=== PATIENT | male | born 1960 | race Caucasian/White ===

== ENCOUNTER 2020-11-14 00:57 | Emergency (ER) | payer OTHER, SELFPAY ==
--- NOTE | 2020-11-14 01:20 | ECG_ITS ---
[facility] Test Date: 2020-11-14 Pat Name: Nick Lawler Department: Room: Gender: Male [employer]: : 1960 Requested By: Tressa Sierra Order Number: [id number] Damian MD: Samantha Fong M.D. Measurements Intervals [place] Rate: 74 P: 61 PA: 178 QRS: 6 QRSD: 91 T: 43 QT: 357 QTc: 397 Interpretive Statements SINUS RHYTHM WITH OCCASIONAL SUPRAVENTRICULAR PREMATURE COMPLEXES POSSIBLE RIGHT VENTRICULAR CONDUCTION DELAY [RSR (QR) IN V1/V2] No previous ECG available for comparison Electronically Signed On 11-15-2020 7:06:59 CDT by Samantha Fong M.D. [id number]
[2020-11-14 01:37] VITALS: BP 187/114; PULSE 68; RESP 18; TEMP 36.8; O2SAT 97; BMI 33.3
--- NOTE | 2020-11-14 02:04 | CTR_ITS ---
PROCEDURE INFORMATION: Exam: CT Angiography Head With Contrast, Arteriography Exam date and time: 11/14/2020 2:04 AM Age: 60 years old Clinical indication: Pain; Patient HX: Patient C/O headache with severe dizziness and hypertension. ; Additional info: Rule out posterior fossa and dissection TECHNIQUE: Imaging protocol: Computed tomography angiography of the head with contrast. Exam focused on the arteries. 3D rendering (Not supervised by radiologist): MIP and/or 3D reconstructed images were created by the technologist. Radiation optimization: All CT scans at this facility use at least one of these dose optimization techniques: automated exposure control; mA and/or kV adjustment per patient size (includes targeted exams where dose is matched to clinical indication); or iterative reconstruction. Contrast material: OMNI 350; Contrast volume: 95 ml; Contrast route: INTRAVENOUS (IV); COMPARISON: CT head wo con* [id number] 11/14/2020 3:01 AM RADIATION DOSE METRICS: Total DLP (mGy-cm): 2532.67 FINDINGS: ANTERIOR CIRCULATION: Right internal carotid artery: Calcification of the cavernous internal carotid artery. Intracranial segment is patent with no significant stenosis. No aneurysm. Limited assessment due to adjacent artifact. Right middle cerebral artery: Unremarkable. No occlusion or significant stenosis. No aneurysm. Right anterior cerebral artery: Unremarkable. No occlusion or significant stenosis. No aneurysm. Partial fenestration of distal A1 segment. Left internal carotid artery: Atherosclerotic calcification of cavernous portion of internal carotid artery. Intracranial segment is patent with no significant stenosis. No aneurysm. Limited assessment due to adjacent artifact. Left middle cerebral artery: Unremarkable. No occlusion or significant stenosis. No aneurysm. Left anterior cerebral artery: Unremarkable. No occlusion or significant stenosis. No aneurysm. POSTERIOR CIRCULATION: Right vertebral artery: Atherosclerotic calcification at the level of skull base. No occlusion or significant stenosis. No aneurysm. Left vertebral artery: Atherosclerotic plaque at the level of skull base. No occlusion or significant stenosis. No aneurysm. Basilar artery: Slight ectasia of the proximal basilar artery at the level of the lower lio. Eccentric noncalcified atherosclerotic plaque or thrombus of the basilar artery proximal to the bifurcation of posterior cerebral arteries with a 1.4 cm length segment irregular plaque and moderate to borderline high-grade stenosis involving short segment . Right posterior cerebral artery: Unremarkable. No occlusion or significant stenosis. No aneurysm. Left posterior cerebral artery: Unremarkable. No occlusion or significant stenosis. No aneurysm. Brain: No definite mass, mass effect, or midline shift. Cerebral ventricles: No ventriculomegaly. Bones/joints: Unremarkable. No acute fracture. Soft tissues: Unremarkable. IMPRESSION: 1. Segment of irregular eccentric atherosclerotic plaque versus thrombus of the basilar artery with moderate to high-grade narrowing. 2. Intracranial carotid vascular calcification. 3. Focal ectasia with small area of calcification proximal basilar artery. PROCEDURE INFORMATION: Exam: CT Angiography Neck With Contrast Exam date and time: 11/14/2020 2:04 AM Age: 60 years old Clinical indication: Pain; Patient HX: Patient C/O headache with severe dizziness and hypertension. ; Additional info: Rule out posterior fossa and dissection TECHNIQUE: Imaging protocol: Computed tomography angiography of the neck with contrast. 3D rendering (Not supervised by radiologist): MIP and/or 3D reconstructed images were created by the technologist. Radiation optimization: All CT scans at this facility use at least one of these dose optimization techniques: automated exposure control; mA and/or kV adjustment per patient size (includes targeted exams where dose is matched to clinical indication); or iterative reconstruction. Contrast material: OMNI 350; Contrast volume: 95 ml; Contrast route: INTRAVENOUS (IV); COMPARISON: CT head wo con* [id number] 11/14/2020 3:01 AM RADIATION DOSE METRICS: Total DLP (mGy-cm): 2532.67 FINDINGS: Right common carotid artery: Significant medial deviation of the distal right common carotid artery and carotid bulb. Atherosclerotic plaque calcified and noncalcified at the bulb proximal to the bifurcation with mild narrowing. No stenosis. No dissection or occlusion. Right internal carotid artery: Mild atherosclerotic plaque and narrowing proximally. No high-grade stenosis of the extracranial segment. No dissection or occlusion. Right external carotid artery: No occlusion or stenosis of the origin. Left common carotid artery: Calcified and noncalcified atherosclerotic plaque at the carotid bulb with mild luminal narrowing. No dissection or occlusion. Significant medial deviation of the left carotid bulb and branching internal and external carotid vasculature at the level of C4. Left internal carotid artery: No stenosis of the extracranial segment. No dissection or occlusion. Left external carotid artery: No occlusion or stenosis of the origin. Mild calcified and noncalcified plaque extends to the immediate proximal left external carotid artery. Right vertebral artery: No stenosis. No dissection or occlusion. Left vertebral artery: Prominent tortuosity of the proximal vertebral artery with narrowing of the origin. No dissection or occlusion. Soft tissues: Normal. No significant soft tissue swelling. Numerous scattered small lymph nodes bilaterally Bones/joints: Severely advanced degenerative changes of the cervical spine with reversal of cervical lordosis. Significant narrowing of C3 through C6 interspaces. Facet arthritis. CT/CT angio headneck* [id number] IMPRESSION: 1. Atherosclerotic plaque of the carotid bulbs with mild narrowing. No high-grade stenosis. 2. Narrowing at the origin of left vertebral artery with prominent tortuosity. 3. Mild narrowing at the proximal right internal carotid artery. REFERENCES: NASCET CRITERIA. The degree of internal carotid artery stenosis is based on NASCET criteria. Normal is no stenosis. Mild is less than 50% stenosis. Moderate is 50-69% stenosis. Severe is 70% to 99% stenosis. Total occlusion is no detectable patent lumen. Radiation Dose CTDIVOL = (mGy): DLP = 2532.67~2532.67 (mGy-cm)
--- NOTE | 2020-11-14 02:04 | CTR_ITS ---
PROCEDURE INFORMATION: Exam: CT Head Without Contrast Exam date and time: 11/14/2020 2:04 AM Age: 60 years old Clinical indication: Pain; Patient HX: Patient C/O headache with severe dizziness and hypertension. TECHNIQUE: Imaging protocol: Computed tomography of the head without contrast. Radiation optimization: All CT scans at this facility use at least one of these dose optimization techniques: automated exposure control; mA and/or kV adjustment per patient size (includes targeted exams where dose is matched to clinical indication); or iterative reconstruction. COMPARISON: No relevant prior studies available. RADIATION DOSE METRICS: Total DLP (mGy-cm): 922.12 FINDINGS: Brain: Normal. No hemorrhage. Unremarkable white matter. No mass effect. Atherosclerotic calcification of the vertebral arteries bilaterally. Calcification at the basilar artery. Cerebral ventricles: No ventriculomegaly. Paranasal sinuses: Visualized sinuses are unremarkable. No fluid levels. Mastoid air cells: Visualized mastoid air cells are well aerated. Bones/joints: Unremarkable. No acute fracture. Soft tissues: Unremarkable. CT/CT head wo con* [id number] IMPRESSION: No acute intracranial abnormality. Focal calcification of the basilar artery and atherosclerotic calcification vertebral arteries. Radiation Dose CTDIVOL = (mGy): DLP = 922.12 (mGy-cm)
--- NOTE | 2020-11-14 02:32 | W.ED.GENADLT ---
HPI - General Adult General: Chief complaint: Headache Stated complaint: dizzy, high B/P at home Time Seen by Provider: 11/14/20 01:38 History of Present Illness: HPI narrative: Patient is a 60-year-old male with history hypertension who presents the emergency room with concerns of vertigo and lightheadedness. Patient has been experiencing vertigo-like symptoms for the last 6 months. However over the last few days, his symptoms is acutely exacerbated. Patient tells me that he experiences vertigo symptoms for the lasting for 3 minutes at a time. Most recently last episode happened about an hour ago. This, patient has experienced lightheadedness over the last 3 days. Denies any associated chest pain, shortness breath, palpitation, focal weakness in arms or legs, dysarthria, diplopia, facial droop, slurring of speech. Because of increasingly frequency of these vertigo spells that happen almost randomly, patient decided to come to the emergency room for evaluation. In addition, patient says every time he has vertigo-like symptoms he also has complaints of right-sided frontal headache that shoots towards the back. Denies any neck pain, fever/chills, cough, runny nose, sore throat, abdominal complaints or complaints at this time. Onset:acutely 3 days ago Duration:3 days Location:home Severity:moderate Review of Systems Narrative: Constitutional: No fever, no chills. HEENT: No vision changes CV: No chest pain, no palpitations PULM: no cough, no dyspnea. GI: No abdominal pain, no N/V/D. : No dysuria MSKEL: No muscle pain SKIN: No new rashes, no lesions. NEURO: +headache, no focal weakness. +vertigo/light-headedness HEME: No visible bruises PSYCH: Normal mood Physical Exam Narrative: EXAM NARRATIVE: Head: Atraumatic Eyes: PERRL, conjunctiva without injection ENT: Mucous membrane moist NECK: Supple, ROM intact LUNGS: LCTAB, no crackles/rhonchi CV: RRR ABDOMEN: Soft, nontender in all quadrants EXTREMITY: Normal ROM SKIN: No rash or erythema NEURO: Mental status? Awake, alert, and oriented to self, year, month, location, and situation.? Following simple axial and appendicular commands.? Has appropriate fund of knowledge, comprehension, and insight.? Able to recall and understands pertinent aspects of medical history and current treatment status.? ? Language? Speech is fluent without word-finding difficulties.? Intact naming, expression, senior ui developer, and repetition.? ? Cranial nerves? 2,3,4,6: PERRL, EOMI with no nystagmus. 5: Intact sensation to light touch, symmetric? 7: Smile symmetrical, no facial droop.? 8: Hearing grossly intact.? 9,10: Normal palate movement.? 11: Normal strength in trapezius bilaterally 12: Tongue protrudes midline.? ? Motor examination? Normal bulk & tone. Strength as follows (R/L): Delts (5/5), Biceps (5/5), Triceps (5/5), Wrist ext (5/5), hip flexors (5/5), plantarflexors (5/5), dorsiflexors (5/5). ? Sensation? Light Touch: Grossly intact and equal in upper and lower extremities bilaterally? Romberg: Negative.? Distal joint position sense intact ? Coordination? Dedoax-ef-tmka-finger movements intact without dysmetria or past-pointing.? Rapid fingertaps: preserved amplitude without decriment.? No tremor, myoclonus or truncal ataxia.? ? Gait/stance? Steady, normal narrow base gait with appropriate arm swing and turning.? Tandem gait without hesitation or loss of balance. PSYCH: Normal mood and affect Course Vital Signs: Vital signs: Vital Signs Temperature 98.2 F 11/14/20 01:37 Pulse Rate 94 11/14/20 06:18 Respiratory Rate 22 H 11/14/20 06:18 Blood Pressure 155/109 11/14/20 06:18 Pulse Oximetry 97 11/14/20 06:18 MDM - General Adult MDM Narrative: Medical decision making narrative: 89-year-old male with history of hypertension presenting to the emergency room with worsening vertigo-like symptoms lasting for few minutes at a time. On neuro exam, patient is neurologically intact. Complaints of headache, will evaluate with CT head and CTA head to rule out posterior fossa pathologies. EKG showing regular sinus rhythm at HT of [74]. Normal axis. No ST elevations/depressions to suggest coronary occlusion. Normal AK, QRS, QT intervals. Work-up today including blood work did not show any signs of acute abnormality. Troponin within normal limit. EKG is nonischemic. CT brain CTA head without any acute findings. Troponin x 2 similar, no suspicion for light-headedness similar to ACS. Patient has been observed in the emergency room without any symptoms of vertigo. There is no other neurological complaints per patient. Patient received a dose of meclizine in the emergency room. Rx: Meclizine as needed for vertigo symptoms. I have given patient follow up with our nurse case management to be seen by our outpatient ENT for increased frequency of vertigo episodes. Patient aware of a call from our nurse case management to schedule for appointment(s) and verbalizes understanding of the importance of following up. Disposition: Discharge. Patient counseled regarding diagnostic impression, treatment plan. Patient given ED strict return precautions to return for continuation, worsening, or development of new symptoms. Instructed to f/u w/ PCP and ENT regarding symptoms today. Patient verbalized understanding. Lab Data: Labs: Lab Results 11/14/20 11/14/20 11/14/20 03:00 03:00 03:00 WBC 12.7 10^3/uL H 10 ^3/uL (4.0-10.0) RBC 4.76 10^6/uL 10^6 /uL (4.1-5.3) Hgb 13.7 g/dL g/dL (11.7-16.6) Hct 43.3 % % (42.0-52.0) MCV 91.0 fl fl (80-94) MCH 28.8 pg pg (28.0-34.0) MCHC 31.6 g/dL g/dL (30.0-36.0) RDW 13.6 % % (12.1-15.1) Plt Count 356 10^3/cmm 10^3 /cmm (130-400) MPV 10.0 fL fL (7.4-10.4) Neut % (Auto) 65.2 % % Lymph % (Auto) 20.3 % % [place] % (Auto) 10.6 % % Eos % (Auto) 3.0 % % Baso % (Auto) 0.4 % % Neut # (Auto) 8.29 10^3/uL H 10 ^3/uL (1.8-7.7) Lymph # (Auto) 2.6 10^3/uL 10^3/ uL (0.8-4.8) [place] # (Auto) 1.4 10^3/uL H 10^ 3/uL (0.2-0.9) Eos # (Auto) 0.4 10^3/uL 10^3/ uL (0.0-0.8) Baso # (Auto) 0.1 10^3/uL 10^3/ uL (0.0-0.1) Nucleated RBC % (a uto) 0 % % Nucleated RBCs # 0.0 /100WBC /100W BC Sodium 137 mmol/L mmol/L (136-145) Potassium 4.3 mmol/L mmol/L (3.5-5.1) Chloride 102 mmol/L mmol/L (98-107) Carbon Dioxide 26 mmol/L mmol/L (22-29) Anion Gap 13.3 (5-19) BUN 22 mg/dL H mg/dL (6-20) Creatinine 0.7 mg/dL mg/dL (0.7-1.2) GFR Calculation 115.4 mL/min mL/m in (90-130) Glucose 101 mg/dL mg/dL (65-115) Calculated Osmolal ity 287 mOsm/kg mOsm/ kg (285-295) Calcium 9.5 mg/dL mg/dL (8.5-10.5) Total Bilirubin 0.2 mg/dL mg/dL (0.15-1.2) AST 37 U/L U/L (0-40) ALT 19 U/L U/L (0-41) Alkaline Phosphata se 67 IU/L IU/L (40-130) Troponin T Gen 5 n g/L 20 ng/L H ng/L (0-15) Troponin T 120 Min [facility] [place] Troponin T Total Protein 6.9 g/dL g/dL (6.6-8.7) Albumin 4.2 g/dL g/dL (3.5-5.2) Globulin 2.7 g/dL g/dL (1.3-4.6) Lipase 38 U/L U/L (13-60) 11/14/20 05:06 WBC RBC Hgb Hct MCV MCH MCHC RDW Plt Count MPV Neut % (Auto) Lymph % (Auto) [place] % (Auto) Eos % (Auto) Baso % (Auto) Neut # (Auto) Lymph # (Auto) [place] # (Auto) Eos # (Auto) Baso # (Auto) Nucleated RBC % (a uto) Nucleated RBCs # Sodium Potassium Chloride Carbon Dioxide Anion Gap BUN Creatinine GFR Calculation Glucose Calculated Osmolal ity Calcium Total Bilirubin AST ALT Alkaline Phosphata se Troponin T Gen 5 n g/L Troponin T 120 Min [facility] 15.45 ng/L H ng/L (0-15) Delta Troponin T -4.55 ABS# L ABS# (0-10) Total Protein Albumin Globulin Lipase Imaging Data^: Other Imaging: Radiologist's impression: [facility] [place] [id number] Scan ReportSigned Patient: Nick Lawler #: [id number]: 1960cct#:[id number]/Sex: 60 / MADM Date: 11/14/20Loc: ERRoom/Bed:Attending Dr: Ordering Provider/Ordering MD: Tressa Sierra MD Date of Service: 11/14/20 Procedure(s): CT angio headneck* [id number] Accession Number(s): [id number] Report Number: [id number] PROCEDURE INFORMATION: Exam: CT Angiography Head With Contrast, Arteriography Exam date and time: 11/14/2020 2:04 AM Age: 60 years old Clinical indication: Pain; Patient HX: Patient C/O headache with severe dizziness and hypertension. ; Additional info: Rule out posterior fossa and dissection TECHNIQUE: Imaging protocol: Computed tomography angiography of the head with contrast. Exam focused on the arteries. 3D rendering (Not supervised by radiologist): MIP and/or 3D reconstructed images were created by the technologist. Radiation optimization: All CT scans at this facility use at least one of these dose optimization techniques: automated exposure control; mA and/or kV adjustment per patient size (includes targeted exams where dose is matched to clinical indication); or iterative reconstruction. Contrast material: OMNI 350; Contrast volume: 95 ml; Contrast route: INTRAVENOUS (IV); COMPARISON: CT head wo con* [id number] 11/14/2020 3:01 AM RADIATION DOSE METRICS: Total DLP (mGy-cm): 2532.67 FINDINGS: ANTERIOR CIRCULATION: Right internal carotid artery: Calcification of the cavernous internal carotid artery. Intracranial segment is patent with no significant stenosis. No aneurysm. Limited assessment due to adjacent artifact. Right middle cerebral artery: Unremarkable. No occlusion or significant stenosis. No aneurysm. Right anterior cerebral artery: Unremarkable. No occlusion or significant stenosis. No aneurysm. Partial fenestration of distal A1 segment. Left internal carotid artery: Atherosclerotic calcification of cavernous portion of internal carotid artery. Intracranial segment is patent with no significant stenosis. No aneurysm. Limited assessment due to adjacent artifact. Left middle cerebral artery: Unremarkable. No occlusion or significant stenosis. No aneurysm. Left anterior cerebral artery: Unremarkable. No occlusion or significant stenosis. No aneurysm. POSTERIOR CIRCULATION: Right vertebral artery: Atherosclerotic calcification at the level of skull base. No occlusion or significant stenosis. No aneurysm. Left vertebral artery: Atherosclerotic plaque at the level of skull base. No occlusion or significant stenosis. No aneurysm. Basilar artery: Slight ectasia of the proximal basilar artery at the level of the lower lio. Eccentric noncalcified atherosclerotic plaque or thrombus of the basilar artery proximal to the bifurcation of posterior cerebral arteries with a 1.4 cm length segment irregular plaque and moderate to borderline high-grade stenosis involving short segment . Right posterior cerebral artery: Unremarkable. No occlusion or significant stenosis. No aneurysm. Left posterior cerebral artery: Unremarkable. No occlusion or significant stenosis. No aneurysm. Brain: No definite mass, mass effect, or midline shift. Cerebral ventricles: No ventriculomegaly. Bones/joints: Unremarkable. No acute fracture. Soft tissues: Unremarkable. IMPRESSION: 1. Segment of irregular eccentric atherosclerotic plaque versus thrombus of the basilar artery with moderate to high-grade narrowing. 2. Intracranial carotid vascular calcification. 3. Focal ectasia with small area of calcification proximal basilar artery. PROCEDURE INFORMATION: Exam: CT Angiography Neck With Contrast Exam date and time: 11/14/2020 2:04 AM Age: 60 years old Clinical indication: Pain; Patient HX: Patient C/O headache with severe dizziness and hypertension. ; Additional info: Rule out posterior fossa and dissection TECHNIQUE: Imaging protocol: Computed tomography angiography of the neck with contrast. 3D rendering (Not supervised by radiologist): MIP and/or 3D reconstructed images were created by the technologist. Radiation optimization: All CT scans at this facility use at least one of these dose optimization techniques: automated exposure control; mA and/or kV adjustment per patient size (includes targeted exams where dose is matched to clinical indication); or iterative reconstruction. Contrast material: OMNI 350; Contrast volume: 95 ml; Contrast route: INTRAVENOUS (IV); COMPARISON: CT head wo con* [id number] 11/14/2020 3:01 AM RADIATION DOSE METRICS: Total DLP (mGy-cm): 2532.67 FINDINGS: Right common carotid artery: Significant medial deviation of the distal right common carotid artery and carotid bulb. Atherosclerotic plaque calcified and noncalcified at the bulb proximal to the bifurcation with mild narrowing. No stenosis. No dissection or occlusion. Right internal carotid artery: Mild atherosclerotic plaque and narrowing proximally. No high-grade stenosis of the extracranial segment. No dissection or occlusion. Right external carotid artery: No occlusion or stenosis of the origin. Left common carotid artery: Calcified and noncalcified atherosclerotic plaque at the carotid bulb with mild luminal narrowing. No dissection or occlusion. Significant medial deviation of the left carotid bulb and branching internal and external carotid vasculature at the level of C4. Left internal carotid artery: No stenosis of the extracranial segment. No dissection or occlusion. Left external carotid artery: No occlusion or stenosis of the origin. Mild calcified and noncalcified plaque extends to the immediate proximal left external carotid artery. Right vertebral artery: No stenosis. No dissection or occlusion. Left vertebral artery: Prominent tortuosity of the proximal vertebral artery with narrowing of the origin. No dissection or occlusion. Soft tissues: Normal. No significant soft tissue swelling. Numerous scattered small lymph nodes bilaterally Bones/joints: Severely advanced degenerative changes of the cervical spine with reversal of cervical lordosis. Significant narrowing of C3 through C6 interspaces. Facet arthritis. CT/CT angio headneck* [id number] IMPRESSION: 1. Atherosclerotic plaque of the carotid bulbs with mild narrowing. No high-grade stenosis. 2. Narrowing at the origin of left vertebral artery with prominent tortuosity. 3. Mild narrowing at the proximal right internal carotid artery. REFERENCES: NASCET CRITERIA. The degree of internal carotid artery stenosis is based on NASCET criteria. Normal is no stenosis. Mild is less than 50% stenosis. Moderate is 50-69% stenosis. Severe is 70% to 99% stenosis. Total occlusion is no detectable patent lumen. Radiation Dose CTDIVOL = (mGy): DLP = 2532.67~2532.67 (mGy-cm) Dictated By:Genny Etienne DOSigned By:Genny Etienne DOSigned Date/Time:11/14/207DD/ [address] [id number] Scan ReportSigned Patient: Nick Lawler #: [id number]: 1960cct#:[id number]/Sex: 60 / MADM Date: 11/14/20Loc: ERRoom/Bed:Attending Dr: Ordering Provider/Ordering MD: Tressa Sierra MD Date of Service: 11/14/20 Procedure(s): CT head wo con* [id number] Accession Number(s): [id number] Report Number: [id number] PROCEDURE INFORMATION: Exam: CT Head Without Contrast Exam date and time: 11/14/2020 2:04 AM Age: 60 years old Clinical indication: Pain; Patient HX: Patient C/O headache with severe dizziness and hypertension. TECHNIQUE: Imaging protocol: Computed tomography of the head without contrast. Radiation optimization: All CT scans at this facility use at least one of these dose optimization techniques: automated exposure control; mA and/or kV adjustment per patient size (includes targeted exams where dose is matched to clinical indication); or iterative reconstruction. COMPARISON: No relevant prior studies available. RADIATION DOSE METRICS: Total DLP (mGy-cm): 922.12 FINDINGS: Brain: Normal. No hemorrhage. Unremarkable white matter. No mass effect. Atherosclerotic calcification of the vertebral arteries bilaterally. Calcification at the basilar artery. Cerebral ventricles: No ventriculomegaly. Paranasal sinuses: Visualized sinuses are unremarkable. No fluid levels. Mastoid air cells: Visualized mastoid air cells are well aerated. Bones/joints: Unremarkable. No acute fracture. Soft tissues: Unremarkable. CT/CT head wo con* [id number] IMPRESSION: No acute intracranial abnormality. Focal calcification of the basilar artery and atherosclerotic calcification vertebral arteries. Radiation Dose CTDIVOL = (mGy): DLP = 922.12 (mGy-cm) Dictated By:Genny Etienne DOSigned By:Genny Etienne DOSigned Date/Time:11/14/20 0434DD/ 0432 Discharge Plan Discharge Patient Disposition: Home Clinical Impression: Vertigo, Hypertensive urgency Condition: Stable Prescriptions: New meclizine 25 mg tablet 25 mg PO DAILY PRN (Reason: vertigo) 10 Days Qty: 10 RF: 0 Discharge Orders: Discharge ED (Routine); Ordered 11/14/20 Ordered By: Tressa Sierra Referrals: Ashli Friedman PA [Primary Care Provider] - Discharge Diet: Advance as tolerated Discharge Activity: Resume usual activity Patient Instructions: Vertigo (ED) Activity Restrictions/Additional Instructions: Our nurse case management will have you follow-up with ENT in the next few days. You would be expected to have a phone call with our nurse case management who will put you on the schedule. Take your medicine as instructed. Come back to the emergency room if you have any worsening lightheadedness, headache, focal weakness in your arms or legs, drooling, difficulty speaking, double vision, or any other neurological complaints. Coding Level of Care Code ED Kardex Clerk for Amber Mcgrath
[2020-11-14] MEDS: meclizine 25 mg tablet PO (02:50)
[2020-11-14] MEDS: iohexol 350 mg/mL 100 mL Btl IV (03:05)
[2020-11-14 03:08] LABS: Basophils # 0.1 10^3/uL (0.0-0.1); Basophils % 0.4 %; Eosinophils # 0.4 10^3/uL (0.0-0.8); Hematocrit 43.3 % (42.0-52.0); Hemoglobin 13.7 g/dL (11.7-16.6); Lymphocytes # 2.6 10^3/uL (0.8-4.8); Lymphocytes % 20.3 %; Mean Corpuscular HGB Conc 31.6 g/dL (30.0-36.0); Mean Corpuscular Hemoglobin 28.8 pg (28.0-34.0); Monocytes # 1.4 10^3/uL (0.2-0.9); Monocytes % 10.6 %; Neutrophils # 8.29 10^3/uL (1.8-7.7); Neutrophils % 65.2 %; Nucleated Red Blood Cells % 0 %; Platelet Count 356 10^3/cmm (130-400); Red Blood Count 4.76 10^6/uL (4.1-5.3); Red Cell Distribution Width 13.6 % (12.1-15.1); White Blood Count 12.7 10^3/uL (4.0-10.0)
[2020-11-14 03:33] LABS: Alanine Aminotransferase 19 U/L (0-41); Albumin Level 4.2 g/dL (3.5-5.2); Alkaline Phosphatase 67 IU/L (40-130); Anion Gap 13.3 (5-19); Aspartate Amino Transferase 37 U/L (0-40); Blood Urea Nitrogen 22 mg/dL (6-20); Calcium 9.5 mg/dL (8.5-10.5); Carbon Dioxide 26 mmol/L (22-29); Chloride 102 mmol/L (98-107); Globulin 2.7 g/dL (1.3-4.6); Glomerular Filtration Rate 115.4 mL/min (90-130); Glucose 101 mg/dL (65-115); Lipase 38 U/L (13-60); Osmolality Calculated 287 mOsm/kg (285-295); Potassium 4.3 mmol/L (3.5-5.1); Sodium 137 mmol/L (136-145); Total Bilirubin 0.2 mg/dL (0.15-1.2); Total Protein 6.9 g/dL (6.6-8.7)
[2020-11-14 03:34] LABS: Troponin T (5th) Once 20 ng/L (0-15)
[2020-11-14] MEDS: hyDRALAzine 25 mg Tablet PO (05:00)
[2020-11-14 05:37] LABS: Troponin 5 2HR 15.45 ng/L (0-15)
[2020-11-14 05:39] LABS: Troponin 5 2HR Delta -4.55 ABS# (0-10)
[2020-11-14 05:41] VITALS: BP 177/102; PULSE 69; O2SAT 96
--- NOTE | 2020-11-14 05:54 | ECG_ITS ---
[facility] Test Date: 2020-11-14 Pat Name: Nick Lawler Department: Room: Gender: Male Entry Level Sales Associate: : 1960 Requested By: Tressa Sierra Order Number: [id number] Damian MD: Samantha Fong M.D. Measurements Intervals [place] Rate: 72 P: 59 OR: 189 QRS: 26 QRSD: 82 T: 50 QT: 349 QTc: 382 Interpretive Statements SINUS RHYTHM WITH OCCASIONAL SUPRAVENTRICULAR PREMATURE COMPLEXES SEPTAL MYOCARDIAL INFARCTION , OF INDETERMINATE AGE [40+ ms Q WAVE IN V1/V2] Compared to ECG 11/14/2020 01:54:36 Myocardial infarct finding now present Electronically Signed On 11-15-2020 7:06:54 CDT by Samantha Fong M.D. [id number]
[2020-11-14 06:18] VITALS: BP 155/109; PULSE 94; RESP 22; O2SAT 97
--- NOTE | 2020-11-14 10:41 | DCPLANNER ---
recreation establishment manager had message to schedule a followup appointment for patient with ENT. recreation establishment manager emailed patients information to Delia Jasmine and Rachel at [facility] General Surgery / ENT. Patients information will be printed and reviewed. Clinic will call patient with appointment information.
--- NOTE | 2020-11-21 12:37 | DCPLANNER ---
kitchen manager was contacted by ENT clinic, was told that clinic attempted to contact to patient, no voicemail set up. Clinic was unable to speak with patient or leave a voicemail for patient. Clinic stated that they would try to contact patient later.
== END 2020-11-14 06:18 | disposition home or self-care (01) ==
PROVIDERS: Emergency Provider Emergency Medicine; PCP Physician Assistant
DX: I16.0 Hypertensive urgency (principal); R42 Dizziness and giddiness
CPT/HCPCS: 70450; 70496; 70498; 80053; 83690; 84484; 85025; 93005; 99283; J8597; Q9967

== ENCOUNTER → 2020-11-20 11:08 | Outpatient (BNVA) | payer OTHER, SELFPAY | PROVIDERS: PCP Physician Assistant; Visit Provider Specialist | DX: I65.1 Occlusion and stenosis of basilar artery (principal); R42 Dizziness and giddiness; G43.711 Chronic migraine without aura, intractable, with status migrainosus; M21.961 Unspecified acquired deformity of right lower leg | CPT/HCPCS: 99205 ==

== ENCOUNTER 2021-01-08 07:54 | Emergency (ER) | payer OTHER, SELFPAY ==
[2021-01-08 08:07] VITALS: BP 158/105; PULSE 78; RESP 16; TEMP 36.8; O2SAT 98
--- NOTE | 2021-01-08 08:17 | XR_ITS ---
WS: [id number] RIGHT KNEE: 3 VIEW(S) TECHNIQUE: AP, oblique(s) and lateral. HISTORY: fall with prior injury COMPARISON: None available. No fracture or dislocation. Abnormal appearance to the suprapatellar joint. There are large fluffy cloudlike calcifications in th e suprapatellar joint. Largest calcification measures 6.0 x 4.4 cm. Marked narrowing of all 3 compartments of the knee with hypertrophic osteophytes along the joint line s. Soft tissue edema and increase fluid in the suprapatellar bursa along with the calcifications. There is also a lobulated soft tissue posterior to the knee joint. XR/XR knee RT 3V* [id number] IMPRESSION: 1. No acute fracture. 2. 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 3. Lobulated amorphous, cloudlike calcifications in the suprapatellar joint pr obably due to CPPD. 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 4. Increased lobulated soft tissue posterior to the knee joint probably due to joint effusion and synovitis. For further evaluation nonurgent MRI the LEFT kn ee would provide additional information.
--- NOTE | 2021-01-08 08:18 | W.ED.FALL ---
Documented by User: Lizbet Sage PA-C 01/08/21 09:21 HPI - Fall General: Chief Complaint: Fall Stated Complaint: THINKS HE BROKE HIS RIGHT FEMUR Time Seen by Provider: 01/08/21 08:11 Source: patient Mode of arrival: wheelchair Limitations: no limitations History of Present Illness: HPI Narrative: 60-year-old male presents to the ER today for right knee pain and right shoulder pain after fall yesterday. Patient reports he was outside walking his dog and got tangled up in the leash when he fell landing on the knee while also twisting it some during the fall. Patient reports he also fell onto the right shoulder and has some pain with lifting the right arm. Patient reports a history of a prior knee injury in the right knee years ago which he never addressed. He always has some swelling but this is significantly worse and pain is a 10 out of 10 and also significantly worse. Patient reports weightbearing is extremely difficult and painful. He also reports any movement is painful. Patient has not take anything for pain at this time. Patient denies any numbness or tingling in the right side. MD complaint: fall Onset (ago): day(s) Fall from: standing Place fall occurred: home Loss of consciousness: None Context: tripped/slipped Location of injury - extremities: Right: shoulder and knee Severity: severe Severity scale (1-10): >10 Quality: sharp Associated symptoms-after fall: Denies abdominal pain, chest pain, headache(s) or neck pain Review of Systems General: Reports: 10 or more systems reviewed and unremarkable except in HPI and below Const: Denies: fever(s) or chills ENMT: Denies: throat pain, nasal discharge or nasal congestion Card: Denies: chest pain or palpitations Resp: Denies: dyspnea or productive cough GI: Denies: abdominal pain, nausea, vomiting, diarrhea or constipation Musc: Reports: extremity pain, extremity swelling, joint pain and joint swelling; Denies: neck pain or back pain Skin/Breast: Denies: rash Neuro: Denies: headache(s) Psych: Denies: anxiety or depression PFS ED PFSH: Social History Smoking and tobacco status: never smoked History of recent travel: No Physical Exam Const: COMMON NORMALS: average body habitus, patient oriented x3 and healthy appearing GENERAL APPEARANCE: cooperative HENMT: COMMON NORMALS: normocephalic, Normal external nose present and moist oral mucous membranes HEAD & SCALP: normocephalic NOSE: Normal external nose present Eye: COMMON NORMALS: conjunctivae normal CONJUNCTIVA: Yes conjunctivae normal Neck/C-Spine: COMMON NORMALS: full ROM Resp: COMMON NORMALS: normal respiratory effort, No retractions and clear to auscultation bilaterally EFFORT & INSPECTION: Yes able to speak in complete sentences AUSCULTATION: clear to auscultation bilaterally, no rales, no rhonchi and no wheezes Cardio: COMMON NORMALS: regular rate and regular rhythm RATE: regular rate RHYTHM: regular rhythm GI: COMMON NORMALS: Normal to inspection, nondistended, normoactive bowel sounds present and non-tender Extremity: RIGHT UPPER EXTREMITY: Yes shoulder joint Right shoulder: Yes Right shoulder joint inspection exam, Yes palpation and No Right shoulder joint ROM exam (Pain with abduction greater than 40 degrees but improved at 90 degrees) RIGHT LOWER EXTREMITY: Yes knee joint (deformity noted to R knee, swelling and tenderness noted, no erythema) Neuro: COMMON NORMALS: patient oriented x3 Psych: COMMON NORMALS: mental status grossly normal, Normal thought process present and cooperative THOUGHT PROCESS: Normal thought process present Skin: COMMON NORMALS: no rashes or lesions noted and no wounds GENERAL SKIN EXAM: no rashes or lesions noted Course ED course: We will get x-ray of the right knee. Right shoulder exam is mostly unremarkable other than some tenderness with abduction however patient is able to do it. This is likely more of a strain as there is no tenderness to palpation in pain is tolerable. Vital Signs: Vital signs: Vital Signs Temperature 98.1 F 01/08/21 08:41 Pulse Rate 82 01/08/21 09:47 Respiratory Rate 18 01/08/21 09:47 Blood Pressure 169/104 01/08/21 09:47 Pulse Oximetry 97 01/08/21 09:47 MDM - Fall MDM Narrative: Medical decision making narrative: 60-year-old male presents to the ER today for right knee pain and right shoulder pain after a fall yesterday. Patient has a significant prior injury to the right knee which is noted on x-ray in the ER today. Patient's shoulder is mildly tender however no suspicion of a fracture at this time. X-ray is unlikely to change our diagnosis. There is no suspicion of an infection at this time. This appears to be musculoskeletal. Patient was given Toradol in the ER for pain as he has not take anything at home. He reports minimal improvement with the Toradol. I did discuss this patient with Dr. Perry who agreed with treatment plan. Patient will be sent home with hydrocodone for pain. He should continue an anti-inflammatory. Rest, ice, elevation recommended. Patient given crutches in the ER and recommend nonweightbearing for several days. Follow-up with PCP in 3 to 5 days to discuss further imaging. Return to the ER with any new or worsening symptoms. Imaging Data^: Other Xray: Radiologist's impression: [facility] [place] [address] XRay Report Signed Patient: Nick Lawler Unit #: [id number] : 1960 Age/Sex: 60 / M ADM Date: 01/08/21 Loc: ER Room/Bed: Attending Dr: Ordering Provider/Ordering MD: Lizbet Sage Date of Service: 01/08/21 Procedure(s): XR knee RT 3V* [id number] Accession Number(s): [id number] Report Number: [id number] WS: [id number] RIGHT KNEE: 3 VIEW(S) TECHNIQUE: AP, oblique(s) and lateral. HISTORY: fall with prior injury COMPARISON: None available. No fracture or dislocation. Abnormal appearance to the suprapatellar joint. There are large fluffy cloudlike calcifications in the suprapatellar joint. Largest calcification measures 6.0 x 4.4 cm. Marked narrowing of all 3 compartments of the knee with hypertrophic osteophytes along the joint lines. Soft tissue edema and increase fluid in the suprapatellar bursa along with the calcifications. There is also a lobulated soft tissue posterior to the knee joint. XR/XR knee RT 3V* [id number] IMPRESSION: 1. No acute fracture. 2. 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 3. 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 4. Increased lobulated soft tissue posterior to the knee joint probably due to joint effusion and synovitis. For further evaluation nonurgent MRI the LEFT knee would provide additional information. Dictated By: Jyoti Doan DO Signed By: Jyoti Doan DO Signed Date/Time: 01/08/21858 DD/ 1 Critical Care Time Critical Care Time: Critical Care Time: No Discharge Plan Discharge Patient Disposition: Home Clinical Impression: Acute pain of right knee Contusion of right shoulder Qualifiers: Encounter type: initial encounter Qualified Code(s): S40.011A - Contusion of right shoulder, initial encounter Condition: Stable Prescriptions: New hydrocodone-acetaminophen 5-325 mg tablet 1 tab PO TID PRN (Reason: pain) Qty: 20 RF: 0 No Action omeprazole 40 mg capsule,delayed release(DR/EC) 40 mg PO DAILY RF: 0 lisinopril 40 mg tablet 40 mg PO DAILY RF: 0 propranolol 20 mg tablet 20 mg PO ONCE RF: 0 gabapentin 300 mg capsule See Rx Instructions .ROUTE .COMPLEX Qty: 30 RF: 0 Discharge Orders: Discharge ED (Routine); Ordered 01/08/21 Ordered By: Lizbet Sage Referrals: Ashli Friedman PA [Primary Care Provider] - Discharge Diet: Usual diet Discharge Activity: Limit activity as instructed Patient Instructions: Opioid Safety Activity Restrictions/Additional Instructions: Take medications as prescribed. Rest, ice, elevation recommended. Take anti-inflammatory. Follow-up with PCP in 7 to 10 days. Return to the ER with any new or worsening symptoms. Coding Level of Care Code ED Smoking Tobacco Packer Hand for Chg Fwd Exam Comprehensive Documented by User: Javier Perry MD 01/13/21 22:47 HPI - Fall General: Chief Complaint: Fall Stated Complaint: THINKS HE BROKE HIS RIGHT FEMUR Time Seen by Provider: 01/08/21 08:11 PFS ED PFSH: Social History Smoking and tobacco status: never smoked History of recent travel: No Course Vital Signs: Vital signs: Vital Signs Temperature 98.1 F 01/08/21 08:41 Pulse Rate 82 01/08/21 09:47 Respiratory Rate 18 01/08/21 09:47 Blood Pressure 169/104 01/08/21 09:47 Pulse Oximetry 97 01/08/21 09:47 MDM - Fall MDM Narrative: Medical decision making narrative: I discussed this case with KEITH Green. I have reviewed documentation and imaging. Javier Perry MD Emergency Medicine Discharge Plan Discharge Patient Disposition: Home Clinical Impression: Acute pain of right knee Contusion of right shoulder Qualifiers: Encounter type: initial encounter Qualified Code(s): S40.011A - Contusion of right shoulder, initial encounter Condition: Stable Prescriptions: New hydrocodone-acetaminophen 5-325 mg tablet 1 tab PO TID PRN (Reason: pain) Qty: 20 RF: 0 No Action omeprazole 40 mg capsule,delayed release(DR/EC) 40 mg PO DAILY RF: 0 lisinopril 40 mg tablet 40 mg PO DAILY RF: 0 propranolol 20 mg tablet 20 mg PO ONCE RF: 0 gabapentin 300 mg capsule See Rx Instructions .ROUTE .COMPLEX Qty: 30 RF: 0 Discharge Orders: Discharge ED (Routine); Ordered 01/08/21 Ordered By: Lizbet Sage Referrals: Ashli Friedman PA [Primary Care Provider] - Discharge Diet: Usual diet Discharge Activity: Limit activity as instructed Patient Instructions: Opioid Safety Activity Restrictions/Additional Instructions: Take medications as prescribed. Rest, ice, elevation recommended. Take anti-inflammatory. Follow-up with PCP in 7 to 10 days. Return to the ER with any new or worsening symptoms. Coding Level of Care Code ED Smoking Tobacco Packer Hand for Amber Fwd Exam Comprehensive
[2021-01-08 08:41] VITALS: BP 173/124; PULSE 82; RESP 18; TEMP 36.7; O2SAT 98
[2021-01-08] MEDS: ketorolac 10 mg Tablet PO (08:42)
[2021-01-08 09:47] VITALS: BP 169/104; PULSE 82; RESP 18; O2SAT 97
== END 2021-01-08 09:50 | disposition home or self-care (01) ==
PROVIDERS: Emergency Provider Physician Assistant; PCP Physician Assistant
DX: M25.561 Pain in right knee (principal); S40.011A Contusion of right shoulder, initial encounter; W01.0XXA Fall on same level from slipping, tripping and stumbling without subsequent striking against object, initial encounter; Y93.K1 Activity, walking an animal; Y92.019 Unspecified place in single-family (private) house as the place of occurrence of the external cause
CPT/HCPCS: 73562; 99283

== ENCOUNTER 2021-01-13 13:19 | Outpatient (CLI) | payer OTHER, SELFPAY ==
--- NOTE | 2021-01-13 13:00 | MR_ITS ---
WS: [id number] MRI HEAD WITHOUT CONTRAST TECHNIQUE: Sagittal T1, T2 axial, T2 axial FLAIR, axial and coronal T1 images, axial susceptibility w eighted imaging, axial diffusion weighted images, and coronal T2 images were obtained. 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 FINDINGS: No evidence of restricted diffusion to suggest acute ischemia. Ventricular system and basal cisterns are patent. Mild small vessel changes with mild parenchymal volume loss. Normal posterior fossa. Norm al vascular flow voids at the skull base. No extra-axial fluid collections. No evidence of mass or ma ss effect. A few tiny chronic lacunar infarcts in the left basal ganglia. Incidental prominent periva scular spaces in the basal ganglia. Mild mucosal thickening in the paranasal sinuses. Mastoid air cells are well aerated. No hemosiderin on susceptibly weighted images. Normal optic chiasm and pituitary infundibulum. Mild symmetric atroph y of the hippocampal formations. MR/MR head wo con* [id number] IMPRESSION: 1. No evidence of restricted diffusion to suggest acute ischemia. 2. Mild small vessel changes with mild parenchymal volume loss. 3. A few tiny chronic lacunar infarcts in the left basal ganglia. Incidental p rominent perivascular spaces in the basal ganglia. 4. Paranasal sinuses and mastoid air cells well aerated. 5. No hemosiderin on susceptibly weighted images.
--- NOTE | 2021-01-13 13:00 | MR_ITS ---
WS: [id number] MRA HEAD TECHNIQUE: Axial 3-D TOF images obtained with axial images and axial, sagittal, and coronal 2-D refor matted images. 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 Basilar artery is patent. Mild narrowing of the mid basilar art camille with eccentric atheromatous plaque. No flow-limiting stenosis. Normal vascularity to the MANUFACTURING BUSINESS ANALYST terr itory bilaterally. Both ICAs are patent at the skull base. Patent anterior communicating artery. Normal A1 segment. Norm al vascularity to the KIMBERLY and MCA territories bilaterally. No evidence of flow-limiting stenosis or a neurysm. MR/MR angio head wo con [id number] IMPRESSION: 1. Mild narrowing of the mid basilar artery as seen on the prior CTA. No flow- limiting or significant stenosis in the basilar artery. Stenosis measures appro ximately 25%. 2. No other significant findings.
== END 2021-01-13 13:20 | disposition home or self-care (01) ==
LOC: RADSHAW 13:24
PROVIDERS: PCP Physician Assistant; Visit Provider Specialist
DX: I65.1 Occlusion and stenosis of basilar artery (principal)
CPT/HCPCS: 70544; 70551

== ENCOUNTER 2021-02-18 10:57 | Outpatient (CLI) | payer SELFPAY ==
--- NOTE | 2021-02-18 11:00 | MR_ITS ---
WS: [id number] MRI RIGHT KNEE NONCONTRAST TECHNIQUE: Axial PD, coronal PD fat sat, coronal PD, sagittal PD, and sagittal PD fat-sat images obta ined. CLINICAL INFORMATION: OSTEOCHONDRITIS COMPARISON: Radiograph January 08, 2021 FINDINGS: Advanced tricompartmental arthritis worse in the medial joint compartment. Distal quadriceps and lynne lla tendons are intact. Hypertrophic patella. Large suprapatellar effusion with calcified loose mary s in the suprapatellar bursa. Diffuse synovial thickening about the joint line. Lobulated popliteal c yst with septations. Popliteal cyst measures 2.3 x 2.3 x 7.5 cm AP by transverse by craniocaudal. Cho ndrocalcinosis. Additional smaller calcified loose bodies about the joint line. ACL is not visualized likely chronically torn. No normal ACL fibers. Normal PCL. Medial and lateral c ollateral ligaments appear intact. Moderate to advanced chondromalacia involving the medial and lateral joint compartments. Small amount of subchondral edema. Hypertrophic changes about the joint line. Moderate to advanced chondromalacia patella. No subchondral edema. Patellar retinaculum appears intact. Chronic thinning of the medial and lateral meniscus with blunting. Near complete absence of the media l meniscus. No acute appearing meniscal tears. MR/MR knee RT wo con* [id number] IMPRESSION: 1. Advanced tricompartmental arthritis with chondromalacia. 2. ACL is absent likely chronically torn. No normal ACL fibers. Normal PCL. 3. Moderate suprapatellar effusion with calcified loose bodies. Synovial thick ening about the joint line with smaller calcified loose bodies. 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 4. Lobulated popliteal cyst with a few septations measuring 2.3 x 2.3 x 7.5 cm AP by transverse by craniocaudal. 5. Medial and lateral collateral ligaments appear intact. 6. Chronic thinning of the medial and lateral meniscus with near complete abse nce of the medial meniscus. Outbridge grading: grade III: partial-thickness cartilage loss with focal ulcer ation
== END 2021-02-18 10:58 | disposition home or self-care (01) ==
PROVIDERS: PCP Physician Assistant; Visit Provider Physician Assistant
DX: M93.90 Osteochondropathy, unspecified of unspecified site (principal); M17.11 Unilateral primary osteoarthritis, right knee; M25.461 Effusion, right knee; M71.21 Synovial cyst of popliteal space [Baker], right knee
CPT/HCPCS: 73721

== ENCOUNTER → 2021-04-02 07:58 | Outpatient (BNVA) | payer SELFPAY | PROVIDERS: PCP Physician Assistant; Referring Provider Physician Assistant; Visit Provider Specialist | DX: M21.961 Unspecified acquired deformity of right lower leg (principal) | CPT/HCPCS: 73560; 73565 ==

== ENCOUNTER 2022-06-18 19:05 | Inpatient (IN) | payer MEDICARE, SELFPAY ==
[2022-06-18] VITALS (11 sets, daily range): BP systolic 102–157; BP diastolic 74–119; PULSE 58–91; RESP 16–25; TEMP 36.4–36.7; O2SAT 96–100; BMI 35.2
--- NOTE | 2022-06-18 19:05 | ECG_ITS ---
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 Measurements Intervals [place] Rate: 67 P: 50 WI: 178 QRS: 41 QRSD: 132 T: 48 QT: 392 QTc: 415 Interpretive Statements SINUS RHYTHM WITH OCCASIONAL SUPRAVENTRICULAR PREMATURE COMPLEXES RIGHT BUNDLE BRANCH BLOCK [120+ ms QRS DURATION, UPRIGHT V1, 40+ ms S IN I/aVL/V4/V5/V6] Compared to ECG 11/14/2020 05:32:57 Right bundle-branch block now present Myocardial infarct finding no longer present Electronically Signed On 06-24-2022 20:56:59 CDT by Gladys Wood M.D. [id number]
--- NOTE | 2022-06-18 19:15 | ECG_ITS ---
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 Measurements Intervals [place] Rate: 55 P: 48 LA: 171 QRS: -47 QRSD: 162 T: 66 QT: 412 QTc: 395 Interpretive Statements SINUS BRADYCARDIA INTRAVENTRICULAR CONDUCTION DELAY [130+ ms QRS DURATION] MODERATE VOLTAGE CRITERIA FOR LVH, CONSIDER NORMAL VARIANT [MEETS CRITERIA IN ONE OF: R(aVL), S(V1), R(V5), R(V5/V6)+S(V1)] MARKED ST ELEVATION, CONSIDER ANTERIOR INJURY [MARKED ST ELEVATION W/O NORMALLY INFLECTED T-WAVE IN V2-V5] Marked ST elevation, consider lateral wall injury ACUTE MT Compared to ECG 11/14/2020 05:32:57 Intraventricular conduction delay now present ST (T wave) deviation now present Sinus rhythm no longer present Myocardial infarct finding still present Electronically Signed On 06-18-2022 21:24:01 CDT by Gladys Wood M.D. [id number]
[2022-06-18 19:23] LABS: Glucose Point of Care 125 mg/dL (70-110)
[2022-06-18] MEDS: ondansetron 2 mg/ML SDV 2 mL 4 MG IVP (19:28)
[2022-06-18] MEDS: HYDROmorphone 1 mg/mL INJ 1 mL IVP (19:30)
[2022-06-18] MEDS: aspirin 81 mg Chew Tablet 324 MG PO (19:30)
--- NOTE | 2022-06-18 19:31 | W.ED.CHESTPA ---
HPI - Chest Pain General: Chief Complaint: Chest Pain Stated Complaint: Chest Pain Time Seen by Provider: 06/18/22 19:11 Source: patient Mode of arrival: ambulatory Limitations: no limitations History of Present Illness: 62-year-old male who states he been having chest pain this evening. States it is severe pain in the center of his chest he rates it an 8 out of 10. Does have a history of heart disease he denies any worsening or improving factors he has some shortness of breath denies any radiation. Associated symptoms: Deny abdominal pain, dyspnea, fever(s), nausea or vomiting Review of Systems Const: Denies: fever(s), chills, body aches or change in appetite Eyes: Denies: eye discomfort ENMT: Denies: throat pain or dental pain Card: Reports: chest pain Resp: Denies: dyspnea GI: Denies: abdominal pain, nausea, vomiting or diarrhea : Denies: dysuria Musc: Denies: neck pain or back pain Neuro: Denies: headache(s) All/Imm: Denies: urticaria PFSH ED PFSH: Social History Smoking and tobacco status: never smoked Second hand smoke exposure: No Smoking risk assessment/counseling performed?: No Alcohol intake: unknown Substance/Drug Use: current Desire information about substance/drug rehabilitation?: No Counseling given: No Adopted: No Caregiver/support person: No Lives independently: No Household members: friend(s) Housing: House service: No Pets and animals: Yes Current gender identity: Male Special steven needs: No Physical Exam Const: COMMON NORMALS: patient oriented x3 GENERAL APPEARANCE: in distress and ill appearing HENMT: COMMON NORMALS: normocephalic and atraumatic HEAD & SCALP: normocephalic and atraumatic Eye: COMMON NORMALS: conjunctivae normal CONJUNCTIVA: Yes conjunctivae normal Neck/C-Spine: COMMON NORMALS: full ROM and supple Chest: COMMONS NORMALS: normal inspection of the chest and normal palpation of entire chest wall Resp: COMMON NORMALS: normal respiratory effort, No retractions, No use of accessory muscles and clear to auscultation bilaterally AUSCULTATION: clear to auscultation bilaterally Cardio: COMMON NORMALS: regular rate, regular rhythm and No murmurs present (Cardio) RATE: regular rate RHYTHM: regular rhythm GI: COMMON NORMALS: Normal to inspection, nondistended, normoactive bowel sounds present, Soft to palpation, non-tender and no masses PALPATION: Yes Soft to palpation Extremity: COMMON NORMALS: normal to inspection and full ROM Neuro: COMMON NORMALS: patient oriented x3, moves all extremities and no focal motor deficits Psych: COMMON NORMALS: mental status grossly normal, Normal thought process present and cooperative THOUGHT PROCESS: Normal thought process present Skin: COMMON NORMALS: no rashes or lesions noted and no wounds GENERAL SKIN EXAM: no rashes or lesions noted Course Vital Signs: Vital signs: Vital Signs Temperature 98.1 F 06/18/22 19:07 Pulse Rate 60 06/18/22 19:07 Respiratory Rate 21 H 06/18/22 19:07 Blood Pressure 133/91 06/18/22 19:07 Pulse Oximetry 96 06/18/22 19:07 Oxygen Delivery Me thod Room Air 06/18/22 19:07 MDM - Chest Pain Medical Decision Making Patient presents with chest pain his initial EKG here was normal had a repeat EKG done at 1925 that shows an obvious STEMI STEMI alert was called patient given heparin and Plavix will go to the Supervisor Telephone Answering Service. Medical Records I reviewed the patient's medical records. Lab Data 06/18/22 19:15 06/18/22 19:15 Laboratory Results POC Glucose 125 mg/dL (70-110) H 06/18/22 19:20 Critical Care Time Critical Care Time: Critical Care Time: Yes Total Critical Care Time: 35 Attestation: The high probability of a clinically significant, sudden or life threatening deterioration of the patient's cv system(s) required my full and direct attention, intervention and personal management. The critical care time is as shown. This time is in addition to time spent performing any reported procedures but includes the following: [x] Data and vital sign review and interpretation [x] Patient assessment, examination and intervention [x] Documentation [x] Medication orders and management Discharge Plan Discharge Patient Disposition: Admitted As Inpatient Clinical Impression: ST elevation myocardial infarction (STEMI) Condition: Stable Prescriptions: No Action omeprazole 40 mg capsule,delayed release(DR/EC) 40 mg PO DAILY lisinopril 40 mg tablet 40 mg PO DAILY clopidogrel 75 mg tablet 75 mg PO DAILY propranolol 60 mg capsule,extended release 24 hr 60 mg PO DAILY Qty: 30 3RF gabapentin 300 mg capsule See Rx Instructions .ROUTE .COMPLEX Qty: 90 0RF Dose Instruction: TAKE 1 CAPSULE BY MOUTH THREE TIMES DAILY Rx Instructions: TAKE 1 CAPSULE BY MOUTH THREE TIMES DAILY hydrocodone-acetaminophen 5-325 mg tablet 1 tab PO TID PRN (Reason: pain) Qty: 20 0RF Referrals: Ashli Friedman PA [Primary Care Provider] - Coding Level of Care Code ED Bench Examiner for Amber Mcgrath
[2022-06-18 19:35] LABS: Basophils # 0.1 10^3/uL (0.0-0.1); Basophils % 0.5 %; Eosinophils # 0.4 10^3/uL (0.0-0.8); Eosinophils % 3.7 %; Hematocrit 43.8 % (42.0-52.0); Lymphocytes % 31.2 %; Mean Corpuscular Hemoglobin 28.7 pg (28.0-34.0); Mean Corpuscular Volume 89.9 fl (80-94); Monocytes # 1.2 10^3/uL (0.2-0.9); Monocytes % 12.2 %; Neutrophils # 5.05 10^3/uL (1.8-7.7); Neutrophils % 52.1 %; Nucleated Red Blood Cells % 0 %; Platelet Count 372 10^3/cmm (130-400); Red Blood Count 4.87 10^6/uL (4.1-5.3); Red Cell Distribution Width 13.2 % (12.1-15.1); White Blood Count 9.7 10^3/uL (4.0-10.0)
[2022-06-18] MEDS: heparin 5,000 unit/mL INJ 1 mL 4000 UNIT IVP (19:35)
--- NOTE | 2022-06-18 19:36 | XACV_ITS ---
Exam Room: ED.ROOM11 Ht: 178 cm Wt: 111 kg BSA: 2.38 m2 Gender: Male : 1960 Exam Priority: Routine Procedure(s): Procedure Description: Diagnostic procedure Procedure Description: PCI procedure Procedure Description: Drug Eluting Coronary Stent Procedure Description: PTCA Procedure Description: Coronary Angiography Diagnostic Cath Status: Emergency Diagnostic Findings * Patient entered the emergency room as an ST segment elevation WY. He was agitated. He was brought to the catheterization laboratory immediately after his EKG revealed an anterior wall WY. Upon placing him on the table and giving him a very mild amount of sedation he went completely ballistic. He ripped his right arm off the armboard breaking through the tape and restraints. He tried to get off the table. He tried to sit up. He was completely out of control. We tried to prep his arm twice; both times it was unsuccessful. We then had to contact anesthesiology to come and sedate him in order to complete the procedure. There was about a 15-minute delay for anesthesiology to come and sedate the patient. The procedure was completed from the right radial artery. * The LAD is closed just past the ostium. There is a large thrombus in the proximal LAD. Once the vessel was opened there was also a significant lesion in the ostium of the first diagonal. The circumflex contains mild to moderate diffuse disease. There is a small first obtuse marginal branch which contains a 50 to 60% ostial stenosis and mild diffuse disease. The second marginal also contains a 60% ostial stenosis. There are 2 other marginal branches which are relatively free of disease. The right coronary artery is the dominant vessel and has a rather unusual high takeoff. There are minor diffuse luminal irregularities but it is largely free of disease. Left ventriculography was not performed due to the patient's extreme agitation.. PCI Status: Emergency PCI LVEF Assessed: No PCI Indication: STEMI - Immediate PCI for STEMI Interventional Findings * The LAD was opened with the wire. There was a large thrombus sitting in the proximal LAD. The LAD was primarily stented with a 4 x 15 mm drug-eluting stent. This opened up the first diagonal branch. There was a 85% stenosis in the ostium. This underwent balloon angioplasty followed by stenting of the ostium with a 2.75 x 12 mm drug-eluting stent. Decision for PCI with Surgical Consult: No PCI for Multi-vessel Disease: No Conclusions 1. Acute anterior wall myocardial infarction with occluded LAD. Significant delay due to the patient's agitation. Anesthesiology required for sedation. LAD stented primarily with good flow post procedure. First diagonal branch stented as well. Recommendations * Medical therapy post intervention. Interventional RX Recommendation: PCI w/o planned CABG Diagnostic RX Recommendation: PCI w/o planned CABG Anticoagulation: Heparin, Tirofiban Pressures Phase:Rest AO : -9 / -12 ( -11 ) @ 4:23:33 PM / ( -10 ) @ 4:23:33 PM 1 / 0 ( 0 ) @ 4:23:33 PM 158 / 103 ( 127 ) @ 4:23:33 PM 99 / 80 ( 90 ) @ 4:23:33 PM 103 / 92 ( 93 ) @ 4:23:33 PM 107 / 90 ( 100 ) @ 4:23:33 PM 100 / 77 ( 85 ) @ 4:23:33 PM 106 / 88 ( 90 ) @ 4:23:33 PM 82 / 64 ( 71 ) @ 4:23:33 PM 100 / 75 ( 88 ) @ 4:23:33 PM 95 / 72 ( 84 ) @ 4:23:33 PM 118 / 75 ( 97 ) @ 4:23:33 PM 101 / 67 ( 82 ) @ 4:23:33 PM Clinical Evaluation EBL: 5mL-10mL Procedural Details Admit Source: Emergency department. Identified patient by full name and date of as verbalized by the patient/guarantor. Does the consent match the physician's order: N/A Emergent. Accurate & Complete Informed Consent: N/A Emergent. Inpatient/Outpatient History & Physical on Chart: N/A Emergent; Informed Consent not obtained due to time critical life threat. If H&P is completed, is and addenduem needed: N/A Emergent; Informed Consent not obtained due to time critical life threat; If yes, is the addendum complete: N/A Emergent; Informed Consent not obtained due to time critical life threat. 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 Chest Pain Symptom Assessment: Typical Angina Symptoms. [facility] Clinical Fraility Score: 4: Vulnerable. Correct patient, site and procedure confirmed by cath team. Current diagnosis: STEMI. PERRLA. 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 Lungs clear x 5 lobes. IV Site on Arrival: 20 gauge in the left anticubital. IV Site on Arrival: 22 gauge in the right anticubital. IV Fluids: 0.9% NaCl at KVO. 0 mL infused prior to cath lab radiology technician. Pre Procedural Pulses: bilateral radial was 3+. Pre Procedural Pulses: bilateral posterior tibial was 1+. Oxygen started at 2liters/min via nasal canula. right groin was prepped with chloroprep then draped in the usual sterile fashion. right radial was prepped with chloroprep then draped in the usual sterile fashion. Baseline sample Acquired. HR: 84 BPM. Physician notified. Physician arrived. Physician scrubbed in. Immediate Pre-Procedure Time Out. Correct Patient: N/A Emergent; Informed Consent not obtained due to time critical life threat; Correct Procedure: N/A Emergent; Informed Consent not obtained due to time critical life threat; Correct Site: N/A Emergent; Informed Consent not obtained due to time critical life threat; Correct Patient Position: N/A Emergent; Informed Consent not obtained due to time critical life threat; Correct Supplies: N/A Emergent; Informed Consent not obtained due to time critical life threat; Dried Flammable Prep: N/A Emergent; Informed Consent not obtained due to time critical life threat; Blood Products Available: N/A Emergent; Informed Consent not obtained due to time critical life threat;. Lidocaine 1% infiltrated to the right radial. Delay of start. Pt agaited and not able to hold still. Anesthesia called for assist in sedation. Anesthesia here to assist in sedation. Lidocaine 1% infiltrated to the right radial. Arterial access obtained. 6 iraqi CLS 3 guide catheter was inserted over the wire. Stella guidewire was advanced through the guide catheter to lesion in the prox LAD. Inflation Number : 1 A MDT R SAUD 4.0X15 ÁNGEL -Lot Number#[id number] exp date 07/09/23 was prepped and advanced across the Prox LAD. The stent was deployed at 12 JEAN-PIERRE for 0:34 seconds. Results checked. Stent balloon out over wire. Results checked. Inflation number : 1 A AB TREK 3.00X12 RX BALLOON was prepped and advanced across the 1st Diag , then inflated to 10 JEAN-PIERRE for 0:32 seconds. Inflation number: 2 The AB TREK 3.00X12 RX BALLOON was reinflated across the 1st Diag, to 8 JEAN-PIERRE for 0:22 seconds. Balloon out. Inflation Number : 3 A T R SAUD 2.75X12 ÁNGEL -Lot Number# [id number] exp date 01/16/24 was prepped and advanced across the 1st Diag. The stent was deployed at 13 JEAN-PIERRE for 0:33 seconds. Guide catheter out. A 6 iraqi JR4 catheter in over wire. Multiple views taken of right coronary artery. Catheter out. Post Procedure: Pulses reassessed and unchanged. PERRLA. 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 No VTE prophylaxis required. A TR Band was successful obtaining hemostatsis at the Right Radial artery insertion site. Estimated blood loss: 5mL-10mL. Responsiveness - Normal response to verbal stimuli; alert and oriented, PERRLA. Airway - Unaffected, no intervention required; spontaneous ventilation. Medication's Wasted: Heparin = 1000 units. Medication's Wasted: Nitro = 49.8 mg. Medication's Wasted: Other = fenanyl 50 mcg. Post-op diagnosis: acute WY. Circulation: W/N/L, pulses unchanged. Nausea/Vomiting: No. Procedure completed. Patient transferred by bed to ICU. Vital chart was stopped. Access Site Site: Right Radial artery Sheath Size: 6 Fr Hemostasis Method: TR Band Hemostasis Success: Successful Procedure Medications Start: 8:05 PM Stop: 8:05 PM Medication: Versed Amount: 2 mg Route: I.V. Start: 8:05 PM Stop: 8:05 PM Medication: Fentanyl Amount: 50 mcg Route: I.V. Start: 8:37 PM Stop: 8:37 PM Medication: Nitrogylcerin Amount: 200 mcg Route: I.A. Start: 9:03 PM Stop: 9:03 PM Medication: Aggrastat 12.5 mg/250 mL Amount: 55 ml Route: I.C. Start: 9:00 PM Stop: 9:00 PM Medication: Aggrastat 12.5 mg/250 mL Amount: 19.8 ml/hr Route: I.V. drip Start: 9:14 PM Stop: 9:14 PM Medication: Heparin Amount: 3000 units Route: I.V. I, the attending physician, have reviewed and verified all procedure medications. Yes, all medications given per verbal order Report Signatures Finalized by Dr. Michael Mcnally MD on 06/18/2022 09:44 PM
[2022-06-18] MEDS: clopidogrel 300 mg Tablet 600 MG PO (19:40)
[2022-06-18 19:46] LABS: INR 0.87 (0.8-1.2)
--- NOTE | 2022-06-18 19:50 | PC.NURSE ---
Nitroglycerin brought to bedside. clinical lab scientist team at bedside. Requested us not give the nitro at this time.
--- NOTE | 2022-06-18 19:55 | PM.HP ---
Providers/Chief Complaint Admitting Physician: Uli Primary Care Provider: Ashli Friedman Chief Complaint: Chest Pain History of Present Illness Nick Lawler is a 62 year old male without any known cardiac history. His girlfriend brought him to the emergency room earlier this evening when he told her that he was having chest pain. When she brought him in it was about 1830 hrs. or so. His first EKG at 1907 hrs. revealed sinus rhythm with PACs but no obvious ST elevation. He continued to appear in distress with chest discomfort and agitation. Second EKG at [address] segment elevation from leads V1 through V6 and leads I and L. He had reciprocal ST segment depression in leads III and aVF. He was taken directly to the cardiac catheterization laboratory after being given aspirin 325 mg, heparin 4000 units, Dilaudid 1 mg, Zofran 4 mg and 600 mg of Plavix. His first troponin was 20 and the second was 15. He was not very interested in providing a history. He said he been having pain all day . He smokes a lot of marijuana. He has hypertension. He also has basilar artery stenosis for which he sees neurology. He has chronic headaches. He states he has had a number of surgeries. He does not know his medications. He does not really want to talk about anything other than his chest pain. Review of Systems Narrative: Review of systems is not available due to the acute nature of the illness. Medications/Allergies Home Medications Medication Instructions Recorded Confirmed Last Taken Type lisinopril 40 mg tablet 40 mg PO DAILY 11/20/20 04/28/21 Unknown History omeprazole 40 mg capsule,delayed 40 mg PO DAILY 11/20/20 04/28/21 Unknown History release hydrocodone 5 mg-acetaminophen 325 1 tab PO TID PRN pain #20 tabs 01/08/21 04/28/21 Unknown Rx mg tablet clopidogrel 75 mg tablet 75 mg PO DAILY 02/27/21 04/28/21 Unknown History propranolol 60 mg capsule,24 60 mg PO DAILY #30 caps 02/27/21 04/28/21 Unknown Rx hr,extended release gabapentin 300 mg capsule See Rx Instructions .Route 01/13/22 Unknown Rx .COMPLEX #90 caps Allergies Allergy/AdvReac Type Severity Reaction Status Date / Time No Known Allergies Allergy Verified 04/28/21 11:24 PFSH Acute PFSH: Medical History (Updated 06/18/22 @ 21:28 by Michael Mcnally MD) CAD (coronary artery disease) Essential hypertension Mild tetrahydrocannabinol (THC) abuse Social History Smoking and tobacco status: never smoked Second hand smoke exposure: No Smoking risk assessment/counseling performed?: No Alcohol intake: unknown Substance/Drug Use: current Desire information about substance/drug rehabilitation?: No Counseling given: No Adopted: No Caregiver/support person: No Lives independently: No Household members: friend(s) Housing: House service: No Pets and animals: Yes Current gender identity: Male Special steven needs: No Vitals/I&O/Wt Last Vital Signs Temp 98.1 F 06/18/22 19:07 Pulse 60 06/18/22 19:07 Resp 21 H 06/18/22 19:07 BP 133/91 06/18/22 19:07 Pulse Ox 97 06/18/22 19:35 O2 Del Method Nasal Cannula 06/18/22 19:35 O2 Flow Rate 2 06/18/22 19:35 Weight last 48 hrs Weight 245 lb Physical Exam Narrative: GENERAL: In general he is awake but agitated and thrashing about in the ER. There was some delay in getting the medication in because of inability to find a vein for an IV. HEENT: Exam within normal limits. NECK: Supple without jugular vein distention. The carotid upstroke is normal without bruits. BACK: Exam normal. LUNGS: Clear. HEART: Regular rate and rhythm. ABDOMEN: Benign without organomegaly or tenderness. EXTREMITIES: No edema. NEUROLOGIC: Exam normal. SKIN: Unremarkable. Data 06/18/22 19:15 06/18/22 19:15 A&P Assessment and plan (1) ST elevation myocardial infarction (STEMI): (2) Basilar artery stenosis: (3) Essential hypertension: (4) Mild tetrahydrocannabinol (THC) abuse: (5) CAD (coronary artery disease): Plan Acute anterior wall myocardial infarction with significant changes in the anterior precordium and the lateral leads. Directly to cardiac catheterization. Attestations Medical Necessity Statement*: Acute hospitalization for management of an acute anterior wall TX with lateral extension. and High Time for a total of 90 minutes, includes reviewing past or interval history, examining/interviewing patient, placing orders, counseling patient/family/other support, updating patient/family/other support, discussing plan of care with staff, communicating with other healthcare providers, documenting encounter and coordinating care Diagnoses ST elevation myocardial infarction (STEMI) I21.3 Basilar artery stenosis I65.1 Essential hypertension I10 Mild tetrahydrocannabinol (THC) abuse F12.10 CAD (coronary artery disease) I25.10
[2022-06-18] MEDS: sodium chloride 0.9% 1,000 ML 999 ML IV (19:57)
[2022-06-18 19:58] LABS: Troponin(5th) Baseline 58 ng/L (0-15)
--- NOTE | 2022-06-18 20:43 | XRR_ITS ---
PROCEDURE INFORMATION: Exam: XR Chest Exam date and time: 06/18/2022 8:50 PM Age: 62 years old Clinical indication: Pain; Chest pressure; Prior surgery; Surgery date: Post-operative (0-2 days); Surgery type: Coronary stents 06/18/2022; Patient HX: Arrival to er with stemi. Patient taken to [place] slabs before xray performed. Multiple stents placed in [facility] slabs this evening. ; Additional info: Cp TECHNIQUE: Imaging protocol: Radiologic exam of the chest. Views: 1 view. COMPARISON: CR (CHEST, ) 06/18/2022 7:45 PM FINDINGS: Lungs: See Heart/Mediastinum finding. Pleural spaces: Unremarkable. No pleural effusion. No pneumothorax. Heart/Mediastinum: Cardiomegaly and mild pulmonary vascular congestion. Bones/joints: Unremarkable. XR/XR chest 1V portable [id number] IMPRESSION: Cardiomegaly and mild pulmonary vascular congestion.
[2022-06-18 20:48] LABS: Alanine Aminotransferase 18 U/L (0-41); Albumin Level 4.3 g/dL (3.5-5.2); Alkaline Phosphatase 76 U/L (40-130); Anion Gap 16.8 (5-19); Aspartate Amino Transferase 31 U/L (0-40); Blood Urea Nitrogen 17 mg/dL (8-23); Calcium 9.1 mg/dL (8.5-10.5); Carbon Dioxide 25 mmol/L (22-29); Chloride 102 mmol/L (98-107); Globulin 2.5 g/dL (1.3-4.6); Glomerular Filtration Rate 68.1 mL/min (90-130); Glucose 108 mg/dL (65-115); NT Pro B Type Natriuretic Pept 95 pg/mL (0-125); Osmolality Calculated 290 mOsm/kg (285-295); Potassium 4.8 mmol/L (3.5-5.1); Sodium 139 mmol/L (136-145); Total Bilirubin 0.4 mg/dL (0.15-1.2); Total Protein 6.8 g/dL (6.6-8.7)
--- NOTE | 2022-06-18 21:15 | ECG_ITS ---
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 Measurements Intervals [place] Rate: 67 P: 50 LA: 178 QRS: 41 QRSD: 132 T: 48 QT: 392 QTc: 415 Interpretive Statements SINUS RHYTHM WITH OCCASIONAL SUPRAVENTRICULAR PREMATURE COMPLEXES RIGHT BUNDLE BRANCH BLOCK [120+ ms QRS DURATION, UPRIGHT V1, 40+ ms S IN I/aVL/V4/V5/V6] Compared to ECG 11/14/2020 05:32:57 Right bundle-branch block now present Myocardial infarct finding no longer present Electronically Signed On 06-18-2022 21:33:49 CDT by Gladys Wood M.D. [id number]
--- NOTE | 2022-06-18 21:57 | USCV_ITS ---
Nick Lawler Age: 62 Gender: M : 1960 Exam Date: 06/18/2022 22:32 Ordering Phys: Michael Mcnally MD ([email or web address]) Technologist: ADAMARIS [place] [facility] [place]ication: acute anterior ME. s/p cardiac cath and 3 cardiac stents today. No prior history of cardiac intervention per patient. BP: 155 / 111 HR: 80 Rhythm: Sinus Technical Quality: Adequate MEASUREMENTS (Male / Female) Normal Values 2D ECHO LV Diastolic Diameter PLAX 4.3 cm 4.2 - 5.9 / 3.9 - 5.3 cm LV Systolic Diameter PLAX 3.0 cm IVS Diastolic Thickness 1.6 cm 0.6 - 1.0 / 0.6 - 0.9 cm IVS Systolic Thickness 2.0 cm LVPW Diastolic Thickness 1.4 cm 0.6 - 1.0 / 0.6 - 0.9 cm LVPW Systolic Thickness 2.2 cm LVOT Diameter 2.1 cm LV Ejection Fraction 2D Teich 59.0 % LV Ejection Fraction MOD 2C 61.0 % LV Ejection Fraction 2C AL 61.5 % LA Diameter 3.4 cm LA Width 4.2 cm LA Height 4.8 cm RA Width 3.6 cm RA Height 5.1 cm Aorta at Sinotubular Diameter 2.9 cm IVC Diameter 1.3 cm M-MODE Aortic Annulus Diameter 3.5 cm LA Ao Ratio MM 0.9 MV E Point Septal Separation 0.0 cm DOPPLER AV Peak Velocity 95.0 cm/s LVOT Peak Velocity 107.0 cm/s AV Area Cont Eq vti 3.6 cm squared AV Area Cont Eq pk 3.9 cm squared MV Peak Velocity 74.0 cm/s MV Area PHT 3.3 cm squared Mitral E to A Ratio 1.3 MV E' Velocity 50.0 cm/s Mitral E to MV E' Ratio 13.5 Mitral E to LV E' Lateral Ratio 14.5 Mitral E to LV E' Septal Ratio 12.7 TR Peak Velocity 222.0 cm/s TR Peak Gradient 19.7 mmHg TV Peak E Velocity 38.0 cm/s Right Atrial Pressure 5.0 mmHg Pulmonary Artery Systolic Pressu 24.7 mmHg PV Peak Velocity 95.0 cm/s RV Acceleration Time 0.1 s RV Ejection Time 0.3 s RV AcT/ET 0.4 FINDINGS Left Ventricle Examination is technically suboptimal due to the patient's body habitus. The ventricle is normal in size. There is mild to moderate hypokinesis of the anterior base, mid anterior wall, apical anterior wall and apex. The ejection fraction is about 45%. Grade 2 diastolic dysfunction. Right Ventricle Normal right ventricular size and systolic function. Normal right ventricular systolic pressure. Right Atrium The right atrium is normal in size. Left Atrium The left atrium is normal in size. Mitral Valve Structurally normal mitral valve. Trace mitral valve regurgitation. Aortic Valve Structurally normal trileaflet aortic valve. No aortic valve stenosis. Trace aortic valve regurgitation. Tricuspid Valve Structurally normal tricuspid valve without significant stenosis or regurgitation. Pulmonary artery systolic pressure is normal. Pulmonic Valve Pulmonic valve not well visualized. [id number] pulmonary valve regurgitation. Pericardium Normal pericardium without effusion. Aorta Normal ascending aorta dimension. IVC The inferior vena cava appears normal. CONCLUSIONS Examination is technically suboptimal due to the patient's body habitus. The ventricle is normal in size. There is mild to moderate hypokinesis of the anterior base, mid anterior wall, apical anterior wall and apex. The ejection fraction is about 45%. Grade 2 diastolic dysfunction. Structurally normal mitral valve. Trace mitral valve regurgitation. Structurally normal trileaflet aortic valve. No aortic valve stenosis. Trace aortic valve regurgitation. Pulmonic valve not well visualized. [id number] pulmonary valve regurgitation. There are no prior echocardiogram studies to compare. Dr. Michael Mcnally MD (Electronically Signed) Final Date: 19 Jun 2022 08:46 S
--- NOTE | 2022-06-18 22:17 | ANE.PACU2 ---
Inpatient post-anesthesia follow up: Airway intact: Yes Vital signs: Temperature 98.1 F Pulse Rate 79 Respiratory Rate 25 Blood Pressure 155/111 Pulse Oximetry 98 Oxygen Delivery Me thod Nasal Cannula Oxygen Flow Rate 2 Fraction of Inspir ed Oxygen Hydration adequate: Yes Nausea and vomiting: No Pain level: 1 Mental status: Baseline Additional Comments: Emergency case, so pre-op assesment and informed consent unable to be obtained. PMH obtained from chart review
[2022-06-18] MEDS: sodium chloride 0.9% 1,000 ML 100 ML IV (22:30)
[2022-06-18 23:15] LABS: Troponin 5 2HR 2384 ng/L (0-15); Troponin 5 2HR Delta 2326 ABS# (0-10)
--- NOTE | 2022-06-18 23:45 | PC.NURSE ---
Spoke to Dr. Mcnally to report elevated BP. PRN medications ordered.
[2022-06-19] VITALS (29 sets, daily range): BP systolic 121–164; BP diastolic 75–116; PULSE 74–103; RESP 14–26; TEMP 36.4; O2SAT 90–100
[2022-06-19] MEDS: hyDRALAzine 10 mg Tablet PO (00:10)
[2022-06-19] MEDS: morphine 4 mg/mL SDV 1 mL 2 MG IVP ×2 (03:40→21:37)
[2022-06-19] MEDS: LORazepam 2 mg/mL INJ 1 mL 0.5 MG IVP (04:37)
--- NOTE | 2022-06-19 07:27 | PC.NURSE ---
2 ml of air released from TR band
--- NOTE | 2022-06-19 07:27 | PC.NURSE ---
3ml of air removed from TR band
--- NOTE | 2022-06-19 07:28 | PC.NURSE ---
Removed 3ml of air from the TR band
--- NOTE | 2022-06-19 07:29 | PC.NURSE ---
Removed 3ml of air from TR band
--- NOTE | 2022-06-19 07:38 | PM.PN ---
Subjective Subjective: Nick had a rough night. He was extraordinarily combative in the [employer]ar[employer]. We had to have anesthesia sedate him in order to do the procedure. Ultimately we stented a completely occluded LAD and stented a significantly narrowed first diagonal branch. He finally settled down after the procedure was over and the propofol wore off. He had hypertension overnight for which we used hydralazine as needed. This morning he states that he hurts all over and feels like he was beat up. His angina is gone. Vitals/I&O/Wt Last Vital Signs Temp 97.6 F 06/18/22 21:45 Pulse 84 06/19/22 05:33 Resp 18 06/19/22 05:15 BP 138/82 06/19/22 05:15 Pulse Ox 90 06/19/22 05:15 O2 Del Method Nasal Cannula 06/18/22 22:26 O2 Flow Rate 2 06/18/22 19:35 06/18/22 06/19/22 06/19/22 22:59 06:59 14:59 Output Total 400 / 400 350 / 750 Balance -400 / -400 -350 / -750 Weight last 48 hrs Weight 245 lb Physical Exam Narrative: GENERAL: In general he is in no distress this morning HEENT: Exam within normal limits. NECK: Supple without jugular vein distention. The carotid upstroke is normal without bruits. BACK: Exam normal. LUNGS: Clear. HEART: Regular rate and rhythm. ABDOMEN: Benign without organomegaly or tenderness. EXTREMITIES: No edema. NEUROLOGIC: Exam normal. SKIN: Unremarkable. Data 06/18/22 19:15 06/18/22 19:15 A&P Assessment and plan (1) CAD (coronary artery disease): (2) Mild tetrahydrocannabinol (THC) abuse: (3) Essential hypertension: (4) ST elevation myocardial infarction (STEMI): (5) Chronic migraine without aura, intractable, with status migrainosus: (6) Basilar artery stenosis: (7) Stented coronary artery: Plan Because of his agitation and the difficulty completing the procedure I did not perform left ventriculography. I have ordered an echo and will look at that today. I will adjust his medications. If everything goes according to plan he will likely be ready to go home tomorrow morning. Attestations Medical Necessity Statement*: Patient requires hospitalization for management of an acute anterior wall UT. The hospital stay will cross 2 midnights. and Moderate Time for a total of 30 minutes, includes reviewing past or interval history, examining/interviewing patient, placing orders, counseling patient/family/other support, updating patient/family/other support, discussing plan of care with staff, documenting encounter and coordinating care Diagnoses CAD (coronary artery disease) I25.10 Mild tetrahydrocannabinol (THC) abuse F12.[address]10 [address] elevation myocardial infarction (STEMI) I21.3 Chronic migraine without aura, intractable, with status migrainosus G43.711 Basilar artery stenosis I65.1 Stented coronary artery Z95.5
[2022-06-19] MEDS: lisinopril 20 mg Tablet 40 MG PO (08:19)
[2022-06-19] MEDS: metoprolol tartrate 25 mg Tablet PO ×2 (08:19→17:01)
[2022-06-19] MEDS: clopidogrel 75 mg Tablet PO (08:19)
[2022-06-19] MEDS: sodium chloride 0.9% 1,000 ML 100 ML IV (08:20)
--- NOTE | 2022-06-19 10:19 | PC.NURSE ---
TR Band off at 0915. Site clean dry and intact. No s/s bleeding or hematoma
--- NOTE | 2022-06-19 14:39 | PC.NURSE ---
Patient very rude to staff and upset about wearing telemetry wires. Refused all telemetry and vitals at this point. Also stated the beds were uncomfortable.
--- NOTE | 2022-06-19 17:09 | PC.NURSE ---
Patient back on telemetry. More pleasant with staff this evening.
[2022-06-20] VITALS (8 sets, daily range): BP systolic 104–129; BP diastolic 76–87; PULSE 80–98; RESP 17–22; O2SAT 90–95
--- NOTE | 2022-06-20 07:22 | P.DS_ITS ---
Discharge Providers Date of Admission: 06/18/22 21:57 Date of Discharge: June 20, 2022 Attending Provider at Admission: geneva Attending Provider at Discharge: Michael Mcnally MD Primary Care Provider: Ashli Friedman Diagnoses at Discharge Discharge Diagnosis (1) CAD (coronary artery disease): Status: Acute (2) Mild tetrahydrocannabinol (THC) abuse: Status: Acute (3) Essential hypertension: Status: Acute (4) ST elevation myocardial infarction (STEMI): Status: Acute (5) Chronic migraine without aura, intractable, with status migrainosus: Status: Acute (6) Basilar artery stenosis: Status: Acute (7) Stented coronary artery: Status: Acute Reason for Visit Reason for Visit: Chest Pain Brief History: Patient was brought in by his girlfriend for chest pain. His EKG initially did not show any ST elevation, however the second EKG revealed dramatic ST elevation in the anterior precordial leads, leads I and L with reciprocal ST depression in the inferior leads. He was given the appropriate medications in the emergency r oom and taken directly to the cardiac catheterization laboratory. Hospital Course Hospital Course Upon his arrival to the cardiac catheterization laboratory he became combative. He ripped his arm away from the armboard twice with very minimal sedation. He was flailing his legs, trying to get off the table and trying to sit up. He could not be controlled. We had to wait for anesthesiology to arrive to sedate him with propofol. This took approximately 50 minutes. The catheterization note says it took 15 minutes however that is incorrect. Once we were able to sedate him we were able to complete the procedure via the right radial artery. His LAD was completely occluded just past the ostium. Once the artery was opened, we realized there was also a 90% stenosis in the first diagonal branch at the ostium. There was significant thrombus burden in the proximal LAD. This was stented. Subsequently an attempt was made to perform balloon angioplasty of the diagonal branch. This was not successful so the ostium of the diagonal was stented. His right coronary artery and circumflex coronary artery had mild diffuse disease. Because of his agitation I did not perform a ventriculogram. An echocardiogram revealed mild hypokinesis in the distribution of the LAD and diagonal. He had an uneventful hospital course. No arrhythmias. No congestive heart failure. No complications with the entry site. His CBC was unremarkable. His creatinine is 1.1. His first troponin was 20. The second troponin was 58. The third troponin was 2384. Chest x-ray revealed cardiomegaly and mild pulmonary vascular congestion. Physical Exam Narrative: GENERAL: In general he is awake alert and feels well enough to go home today HEENT: Exam within normal limits. NECK: Supple without jugular vein distention. The carotid upstroke is normal without bruits. BACK: Exam normal. LUNGS: Clear. HEART: Regular rate and rhythm. ABDOMEN: Benign without organomegaly or tenderness. EXTREMITIES: No edema. Right radial artery area is flat, dry, no bleeding and there is an absence of vascular complication. Pulses present. NEUROLOGIC: Exam normal. SKIN: Unremarkable. Discharge Data Studies Completed and Pending Completed Studies During Hospitalization Category Date Time Status [employer] request for service Stat Exams 06/18/22 19:36 Completed XR chest 1V portable [id number] Stat Exams 06/18/22 20:43 Completed CV. echo complete* [id number] Routine Ultrasound 06/18/22 21:57 Completed Radiology Impressions Chest X-Ray 06/18/22 20:43 IMPRESSION: Cardiomegaly and mild pulmonary vascular congestion. Laboratory Results WBC 9.7 10^3/uL (4.0-10.0) 06/18/22 19:15 RBC 4.87 10^6/uL (4.1-5.3) 06/18/22 19:15 Hgb 14.0 g/dL (11.7-16.6) 06/18/22 19:15 Hct 43.8 % (42.0-52.0) 06/18/22 19:15 MCV 89.9 fl (80-94) 06/18/22 19:15 MCH 28.7 pg (28.0-34.0) 06/18/22 19:15 MCHC 32.0 g/dL (30.0-36.0) 06/18/22 19:15 RDW 13.2 % (12.1-15.1) 06/18/22 19:15 Plt Count 372 10^3/cmm (130-400) 06/18/22 19:15 MPV 11.0 fL (7.4-10.4) H 06/18/22 19:15 Neut % (Auto) 52.1 % 06/18/22 19:15 Lymph % (Auto) 31.2 % 06/18/22 19:15 [place] % (Auto) 12.2 % 06/18/22 19:15 Eos % (Auto) 3.7 % 06/18/22 19:15 Baso % (Auto) 0.5 % 06/18/22 19:15 Neut # (Auto) 5.05 10^3/uL (1.8-7.7) 06/18/22 19:15 Lymph # (Auto) 3.0 10^3/uL (0.8-4.8) 06/18/22 19:15 [place] # (Auto) 1.2 10^3/uL (0.2-0.9) H 06/18/22 19:15 Eos # (Auto) 0.4 10^3/uL (0.0-0.8) 06/18/22 19:15 Baso # (Auto) 0.1 10^3/uL (0.0-0.1) 06/18/22 19:15 Nucleated RBC % (auto) 0 % 06/18/22 19:15 Nucleated RBCs # 0.0 /100WBC 06/18/22 19:15 PT 12.10 SECONDS (12.1-14.9) 06/18/22 19:29 INR 0.87 (0.8-1.2) 06/18/22 19:29 Sodium 139 mmol/L (136-145) 06/18/22 19:15 Potassium 4.8 mmol/L (3.5-5.1) 06/18/22 19:15 Chloride 102 mmol/L (98-107) 06/18/22 19:15 Carbon Dioxide 25 mmol/L (22-29) 06/18/22 19:15 Anion Gap 16.8 (5-19) 06/18/22 19:15 BUN 17 mg/dL (8-23) 06/18/22 19:15 Creatinine 1.1 mg/dL (0.7-1.2) 06/18/22 19:15 GFR Calculation 68.1 mL/min (90-130) L 06/18/22 19:15 Glucose 108 mg/dL (65-115) 06/18/22 19:15 POC Glucose 125 mg/dL (70-110) H 06/18/22 19:20 Calculated Osmolality 290 mOsm/kg (285-295) 06/18/22 19:15 Calcium 9.1 mg/dL (8.5-10.5) 06/18/22 19:15 Total Bilirubin 0.4 mg/dL (0.15-1.2) 06/18/22 19:15 AST 31 U/L (0-40) 06/18/22 19:15 ALT 18 U/L (0-41) 06/18/22 19:15 Alkaline Phosphatase 76 U/L (40-130) 06/18/22 19:15 Troponin T Baseline 58 ng/L (0-15) H 06/18/22 19:15 Troponin T 120 Minute 2384 ng/L (0-15) H 06/18/22 22:17 Delta Troponin T 2326 ABS# (0-10) H* 06/18/22 22:17 NT-Pro-B Natriuret Pep 95 pg/mL (0-125) 06/18/22 19:15 Total Protein 6.8 g/dL (6.6-8.7) 06/18/22 19:15 Albumin 4.3 g/dL (3.5-5.2) 06/18/22 19:15 Globulin 2.5 g/dL (1.3-4.6) 06/18/22 19:15 Procedures Performed Coronary angiography. Primary stenting proximal LAD. Balloon angioplasty and stenting of the ostial first diagonal. Vitals Last Vital Signs Temp 97.6 F 06/19/22 19:00 Pulse 80 06/20/22 05:28 Resp 21 H 06/20/22 05:00 BP 122/87 06/20/22 05:00 Pulse Ox 93 06/20/22 05:00 O2 Del Method Room Air 06/19/22 19:00 O2 Flow Rate 2 06/18/22 19:35 Discharge Plan Discharge Patient Disposition: Home Condition: Stable Prescriptions: New clopidogrel 75 mg Tablet 75 mg PO DAILY Qty: 90 0RF lisinopril 20 mg Tablet 40 mg PO DAILY Qty: 90 0RF aspirin [Adult Low Dose Aspirin] 81 mg tablet,delayed release (DR/EC) 81 mg PO DAILY Qty: 90 2RF atorvastatin 80 mg tablet 80 mg PO DAILY Qty: 30 5RF Continued omeprazole 40 mg capsule,delayed release(DR/EC) 40 mg PO DAILY propranolol 60 mg capsule,extended release 24 hr 60 mg PO DAILY Qty: 30 3RF gabapentin 300 mg capsule See Rx Instructions .ROUTE .COMPLEX Qty: 90 0RF Dose Instruction: TAKE 1 CAPSULE BY MOUTH THREE TIMES DAILY Rx Instructions: TAKE 1 CAPSULE BY MOUTH THREE TIMES DAILY Chlortab-4 4 mg Tablet 8 mg PO QAM Vitamin B-12 50 mcg Tablet 50 mcg PO DAILY Referrals: Ashli Friedman PA [Primary Care Provider] - Discharge Diet: Cardiac Discharge Activity: Resume usual activity, Increase activity as tolerated and Limit activity as instructed Patient Instructions: Heart Healthy Diet (DC), Cholesterol and Your Health (GEN), Opioid Safety, Post Heart Attack Stoplight Activity Restrictions/Additional Instructions: No lifting over 5 pounds for 2 days with the right arm. No heavy exertion for 2 weeks. Discharge Attestations Time Spent in Discharge Care*: greater than 30 min Quality Metrics Clinical Quality Measures [ Acute Myocardial Infaction { Clinical Trial Participant: No; Contraindication to aspirin: None; Aspirin prescribed; Contraindication to statin: None; Statin prescribed; Contraindication to PCI: None; PCI performed;}] Coding Level of Care Code 27046 Total time (in minutes) for Discharge: 35 Diagnoses CAD (coronary artery disease) I25.10 Mild tetrahydrocannabinol (THC) abuse F12.[address] elevation myocardial infarction (STEMI) I21.3 Chronic migraine without aura, intractable, with status migrainosus G43.711 Basilar artery stenosis I65.1 Stented coronary artery Z95.5
[2022-06-20] MEDS: lisinopril 20 mg Tablet 40 MG PO (08:23)
[2022-06-20] MEDS: clopidogrel 75 mg Tablet PO (08:24)
[2022-06-20] MEDS: metoprolol tartrate 25 mg Tablet PO (08:25)
--- NOTE | 2022-06-20 10:05 | PC.NURSE ---
Pt discharged home with . Care notes provided on medications, hearth helath diet and STEmi. CHF stoplight provided and discussed. Medications discussed, what was taken today already, what he needed to take later, etc. Post radial cath access care discussed and reading info provided. Importance of Plavix to be taken every day without interruptions discussed. PT and verbalized understanding.
== END 2022-06-20 10:05 | disposition home or self-care (01) | DRG 247 ==
LOC: ER 19:36 → CCL 19:53 → ICU 21:56
PROVIDERS: Admitting Provider Internal Medicine; Emergency Provider Emergency Medicine; PCP Physician Assistant; Visit Provider Internal Medicine Cardiovascular Disease
PROC: 027135Z Dilation of Coronary Artery, Two Arteries with Two Drug-eluting Intraluminal Devices, Percutaneous Approach (ICD-10-PCS; principal; 2022-06-18 20:00)
PROC: 027135Z Dilation of Coronary Artery, Two Arteries with Two Drug-eluting Intraluminal Devices, Percutaneous Approach (ICD-10-PCS; 2022-06-18 20:00)
DX: I21.02 ST elevation (STEMI) myocardial infarction involving left anterior descending coronary artery (principal); I25.10 Atherosclerotic heart disease of native coronary artery without angina pectoris; F12.10 Cannabis abuse, uncomplicated; I10 Essential (primary) hypertension; G43.711 Chronic migraine without aura, intractable, with status migrainosus; I65.1 Occlusion and stenosis of basilar artery
CPT/HCPCS: 36416; 71045; 80053; 82962; 83880; 84484; 85025; 85610; 93005; 93306; 93454; 96361; 96365; 96367; 96376; 99152; 99291; C1725; C1769; C1874; C1887; C1894; C9600; J1170; J1644; J2060; J2250; J2270; J2405; J2704; J3010; J3490; J7030; Q9967

== ENCOUNTER → 2022-06-25 12:22 | Outpatient (BNVA) | payer MEDICARE, SELFPAY | PROVIDERS: PCP Physician Assistant; Visit Provider Internal Medicine Cardiovascular Disease | DX: I25.10 Atherosclerotic heart disease of native coronary artery without angina pectoris (principal); Z95.5 Presence of coronary angioplasty implant and graft; F12.10 Cannabis abuse, uncomplicated; I10 Essential (primary) hypertension; I65.1 Occlusion and stenosis of basilar artery; L03.115 Cellulitis of right lower limb; I25.2 Old myocardial infarction | CPT/HCPCS: 99213 ==

== ENCOUNTER → 2023-04-09 10:54 | Outpatient (BNVA) | payer MEDICARE, SELFPAY | PROVIDERS: PCP Physician Assistant; Visit Provider Nurse Practitioner Family | DX: I25.10 Atherosclerotic heart disease of native coronary artery without angina pectoris (principal); I10 Essential (primary) hypertension | CPT/HCPCS: 99214 ==

== ENCOUNTER → 2023-08-16 13:32 | Outpatient (BNVA) | payer MEDICARE, SELFPAY | PROVIDERS: PCP Physician Assistant; Visit Provider Internal Medicine Cardiovascular Disease | DX: I25.2 Old myocardial infarction (principal); I10 Essential (primary) hypertension; I25.10 Atherosclerotic heart disease of native coronary artery without angina pectoris; Z95.5 Presence of coronary angioplasty implant and graft; F12.10 Cannabis abuse, uncomplicated; I65.1 Occlusion and stenosis of basilar artery | CPT/HCPCS: 99213 ==